=== PATIENT | female | born 1955 | race Two or more races ===

== ENCOUNTER 2023-10-16 12:23 | Inpatient (IN) | payer MEDICARE, OTHER ==
[~2023-10-16] VITALS: Ht 152.4 cm; Wt 78.5 kg
[2023-10-16] MEDS ORDERED: ACETAMINOPHEN ES 500 MG TABLET ONE (12:56)
[2023-10-16] MEDS: ACETAMINOPHEN ES 500 MG TABLET PO ONE (13:16)
[2023-10-16 13:33] LABS: BASOPHILS # (AUTO) 0.1 K/uL (0.0-0.2); BASOPHILS % (AUTO) 0.9 % (0.0-2.0); EOSINOPHILS # (AUTO) 0.2 K/uL (0.0-0.7); EOSINOPHILS % (AUTO) 2.4 % (0.0-6.0); HEMATOCRIT 40 % (33-45); HEMOGLOBIN 13.9 g/dL (11.5-14.8); LYMPHOCYTES # (AUTO) 2.2 K/uL (0.8-4.8); LYMPHOCYTES % (AUTO) 34.4 % (20.0-44.0); MEAN CORPUSCULAR HEMOGLOBIN 37 PG (26.0-33.0); MEAN CORPUSCULAR HGB CONC 35 g/dl (31.0-36.0); MEAN CORPUSCULAR VOLUME 106 fL (82-100); MONOCYTES # (AUTO) 0.5 K/uL (0.1-1.30); MONOCYTES % (AUTO) 7.4 % (2.0-12.0); NEUTROPHILS # (AUTO) 3.5 K/uL (1.8-8.9); NEUTROPHILS % (AUTO) 54.9 % (43.0-81.0); PLATELET COUNT (AUTO) 209 K/uL (150-450); RED BLOOD CELL COUNT(AUTO) 3.79 MIL/uL (4.0-5.2); RED CELL DISTRIBUTION WIDTH 14.7 % (11.5-15.0); WHITE BLOOD COUNT (AUTO) 6.4 K/uL (4.3-11.0)
[2023-10-16] MEDS: IV NS 0.9% 1,000 ML BAG IV ONE (13:52)
[2023-10-16 13:57] LABS: CALCIUM, SERUM 8.9 mg/dL (8.5-10.1); CARBON DIOXIDE 27 mmol/L (21-32); CHLORIDE 102 mmol/L (98-107); CREATININE 0.6 mg/dL (0.6-1.3); GLUCOSE 103 mg/dL (74-106); POTASSIUM 5.5 mmol/L (3.5-5.1); SODIUM SERUM 136 mmol/L (136-145); UREA NITROGEN, BLOOD 21 mg/dL (7-18)
[2023-10-16] MEDS ORDERED: METH2.5T PO (13:59)
[2023-10-16] MEDS ORDERED: IBUP-1955 PO (13:59)
[2023-10-16] MEDS ORDERED: DEXT15DR23 EACHEYE (13:59)
[2023-10-16] MEDS ORDERED: MULT-213 PO (13:59)
[2023-10-16] MEDS ORDERED: MAGN400O6 PO (13:59)
[2023-10-16] MEDS ORDERED: GABA800T11 PO (13:59)
[2023-10-16] MEDS ORDERED: NA P133E RC (13:59)
[2023-10-16] MEDS ORDERED: GUAI100S9 PO (13:59)
[2023-10-16] MEDS ORDERED: IPRA3AMP23 IH (13:59)
[2023-10-16] MEDS ORDERED: ENOX40DI SQ (13:59)
[2023-10-16] MEDS ORDERED: FOLI0.4T6 PO (13:59)
[2023-10-16] MEDS ORDERED: ALBU2.5V38 IH (13:59)
[2023-10-16] MEDS ORDERED: HYDR-3980 PO (13:59)
[2023-10-16] MEDS ORDERED: ADAL40PE5 SQ (13:59)
[2023-10-16] MEDS ORDERED: LIDO30AD10 TP (13:59)
[2023-10-16] MEDS ORDERED: ALBU18HF2 IH (13:59)
[2023-10-16] MEDS ORDERED: DOCU100C36 PO (13:59)
[2023-10-16] MEDS ORDERED: BACL10TA PO (13:59)
[2023-10-16] MEDS ORDERED: BISA10SU11 RC (13:59)
[2023-10-16] MEDS ORDERED: ACET-637 PO (13:59)
[2023-10-16] MEDS ORDERED: ONDANSETRON HCL/PF 4 MG/2 ML VIAL IVP PRN (15:00)
[2023-10-16] MEDS ORDERED: ACETAMINOPHEN 325 MG TABLET PO PRN (15:00)
[2023-10-16] MEDS ORDERED: ALBUTEROL FS 2.5 MG/0.5 ML VIAL.NEB NEB PRN (15:30)
[2023-10-16 16:00] VITALS: BP 102/60; TEMP 98.2; O2SAT 99
[2023-10-16] MEDS: IV NS 0.9% 1,000 ML IV SCH (16:35)
[2023-10-16] MEDS: DOCUSATE SODIUM 100 MG CAPSULE PO SCH (17:00)
[2023-10-16] MEDS: ACETAMINOPHEN ES 500 MG TABLET PO SCH (17:34)
[2023-10-16] MEDS: POLYVINYL ALCOHOL 15 ML BOTTLE EACHEYE SCH (18:21)
[2023-10-16] MEDS: ALBUTEROL FS 2.5 MG/0.5 ML VIAL.NEB NEB SCH (19:30)
[2023-10-16] MEDS: IPRATROPIUM NEB FS 0.5 MG/2.5 ML AMPUL.NEB NEB SCH (19:30)
[2023-10-16 19:50] VITALS: O2SAT 98
[2023-10-16 20:00] VITALS: BP 112/62; TEMP 99; O2SAT 96
[2023-10-16] MEDS: GABAPENTIN 400 MG CAPSULE PO SCH (21:04)
[2023-10-16] MEDS: HEPARIN SODIUM, PORCINE 5000 UNITS/1 ML VIAL SQ SCH (21:05)
[2023-10-16] MEDS: MORPHINE SULFATE INJ 2 MG/ML DISP.SYRIN IV PRN (21:06)
[2023-10-17] VITALS (9 sets, daily range): BP systolic 99–107; BP diastolic 60–70; TEMP 98.2–98.6; O2SAT 92–99
[2023-10-17 07:01] LABS: BILIRUBIN,TOTAL 0.2 mg/dL (0.2-1.0); CALCIUM, SERUM 9.3 mg/dL (8.5-10.1); CREATININE 0.5 mg/dL (0.6-1.3); MAGNESIUM 2.2 mg/dL (1.8-2.4); PHOSPHORUS 3.3 mg/dL (2.5-4.9); POTASSIUM 3.9 mmol/L (3.5-5.1); TOTAL PROTEIN, SERUM 6.4 g/dL (6.4-8.2)
[2023-10-17 07:14] LABS: BASOPHILS % (AUTO) 0.4 % (0.0-2.0); EOSINOPHILS # (AUTO) 0.1 K/uL (0.0-0.7); EOSINOPHILS % (AUTO) 2.1 % (0.0-6.0); HEMATOCRIT 39 % (33-45); LYMPHOCYTES # (AUTO) 2.4 K/uL (0.8-4.8); LYMPHOCYTES % (AUTO) 43.2 % (20.0-44.0); MEAN CORPUSCULAR HEMOGLOBIN 36 PG (26.0-33.0); MEAN CORPUSCULAR HGB CONC 34 g/dl (31.0-36.0); MEAN CORPUSCULAR VOLUME 107 fL (82-100); MONOCYTES # (AUTO) 0.5 K/uL (0.1-1.30); NEUTROPHILS # (AUTO) 2.5 K/uL (1.8-8.9); NEUTROPHILS % (AUTO) 45.3 % (43.0-81.0); PLATELET COUNT (AUTO) 184 K/uL (150-450); RED CELL DISTRIBUTION WIDTH 14.6 % (11.5-15.0); WHITE BLOOD COUNT (AUTO) 5.4 K/uL (4.3-11.0)
[2023-10-17] MEDS: FOLIC ACID 1 MG TABLET PO SCH (08:26)
[2023-10-18] VITALS (8 sets, daily range): BP systolic 100–121; BP diastolic 62–81; TEMP 97.9–98.9; O2SAT 92–98
[2023-10-18] MEDS: BACLOFEN (10 MG) 10 MG TABLET PO PRN (04:37)
[2023-10-18 09:29] LABS: APPEARANCE,URINE SLIGHTLY CLOUDY (CLEAR); BILIRUBIN,URINE NEGATIVE (NEGATIVE); BLOOD, URINE NEGATIVE Ery/uL (NEGATIVE); COLOR,URINE YELLOW (YELLOW); KETONES,URINE NEGATIVE (NEGATIVE); LEUKOCYTE ESTERASE ,URINE 1+ (NEGATIVE); NITRITE, URINE POSITIVE (NEGATIVE); PROTEIN,URINE NEGATIVE (NEGATIVE); UGLUCOSE NEGATIVE (NEGATIVE); UROBILINOGEN,URINE 0.2 EU/dL (0.2)
[2023-10-18 10:06] LABS: ADD URINE CULTURE YES; BACTERIA,URINE Many /HPF (None Seen); RBC,URINE 0-2 /HPF (0-2); SQUAMOUS EPITHELIAL CELL,UR Few /HPF (None Seen); WBC,URINE 21-50 /HPF (0-3)
[2023-10-19 00:27] VITALS: BP 108/61; TEMP 98.1; O2SAT 93
[2023-10-19 04:13] VITALS: BP 115/59; TEMP 98.2; O2SAT 96
[2023-10-19 07:25] VITALS: O2SAT 94
[2023-10-19 08:00] VITALS: BP 110/72; TEMP 98.9; O2SAT 95
[2023-10-19] MEDS ORDERED: NITR100C6 PO (11:25)
[2023-10-19 12:00] VITALS: BP 99/70; TEMP 98.6; O2SAT 94
[2023-10-19] MEDS: NITROFURANTOIN/MONOHYDRATE MACROCRYSTALS 100 MG CAPSULE PO SCH (12:59)
[2023-10-19 16:00] VITALS: BP 123/85; TEMP 99; O2SAT 94
== END 2023-10-19 16:40 | DRG 641 ==
LOC: ER 12:37 → MEDSG1 15:28 → TELE1 16:07
PROVIDERS: ADMIT Internal Medicine; ATTEND Internal Medicine
DX: E86.0 Dehydration (principal); N39.0 Urinary tract infection, site not specified; R53.1 Weakness; E87.5 Hyperkalemia; F41.9 Anxiety disorder, unspecified; E78.5 Hyperlipidemia, unspecified; F32.A Depression, unspecified; G89.29 Other chronic pain; Z88.0 Allergy status to penicillin; M06.9 Rheumatoid arthritis, unspecified; I10 Essential (primary) hypertension; J44.9 Chronic obstructive pulmonary disease, unspecified; I11.0 Hypertensive heart disease with heart failure; I50.9 Heart failure, unspecified; Z89.512 Acquired absence of left leg below knee; Z89.511 Acquired absence of right leg below knee; J98.4 Other disorders of lung
CPT/HCPCS: 36415; 71045-TC; 80048-TC; 80053-TC; 81001; 82962-TC; 83735-TC; 84100-TC; 84443-TC; 84484-TC; 85025-TC; 87081-TC; 87086-TC; 94760-TC; 94762-TC; 94799-TC; A6403; G0378; J1644; J2270; J7030